=== PATIENT | male | born 1960 | race Caucasian/White ===

== ENCOUNTER 2023-08-06 03:52 | Day surgery (SDC) | payer OTHER ==
[2023-08-02 16:04] VITALS: BMI 26.6
[2023-08-06] MEDS ORDERED: MIDAZOLAM HCL 2 MG/2 ML SINGLE DOSE VIAL ONE (10:09)
[2023-08-06 13:09] VITALS: RESP 18
[2023-08-06 13:13] VITALS: BP 137/88; PULSE 87; TEMP 98.2
== END 2023-08-06 12:03 | disposition home or self-care (01) ==
LOC: JASU-SURG 03:52
PROVIDERS: ATTEND Urology
PROC: 0TF3XZZ Fragmentation in Right Kidney Pelvis, External Approach (ICD-10-PCS; principal; 2023-08-06 10:30)
DX: N20.0 Calculus of kidney (principal)
CPT/HCPCS: 36415; 82010; 82962